=== PATIENT | female | born 1940 | race Caucasian/White ===

== ENCOUNTER 2023-04-28 09:48 | Emergency (ER) | payer MEDICARE ==
[~2023-04-28] VITALS: Ht 162.6 cm; Wt 71.0 kg
[2023-04-28 10:00] VITALS: BP 130/63
[2023-04-28 10:15] VITALS: BP 121/61
[2023-04-28 10:30] VITALS: BP 126/65
[2023-04-28 12:18] VITALS: BP 64/45
== END 2023-04-28 12:21 | disposition home or self-care (01) ==
LOC: ED 09:48
DX: S00.12XA Contusion of left eyelid and periocular area, initial encounter (principal); E78.5 Hyperlipidemia, unspecified; W01.198A Fall on same level from slipping, tripping and stumbling with subsequent striking against other object, initial encounter; Z79.02 Long term (current) use of antithrombotics/antiplatelets